=== PATIENT | female | born 1985 | race Caucasian/White ===

== ENCOUNTER 2023-11-14 19:53 | Outpatient (CLI) | payer BC ==
[~2023-11-14] VITALS: Ht 167.6 cm; Wt 105.0 kg
[~2023-11-14 19:53] MED LIST: TAMIFLU 75MG75 MG PO
[2023-11-14 20:30] VITALS: BP 156/97; PULSE 73; TEMP 97.9
[2023-11-14] MEDS ORDERED: LR 1,000 ML IV PRN (20:45)
[2023-11-14 21:00] VITALS: BP 153/85; PULSE 68
[2023-11-14 21:23] LABS: COLLECTION METHOD CLEAN CATCH
[2023-11-14 21:25] LABS: BASO % 0.4 % (0.0-2.0); EOS # 0.1 K/mm3 (0.0-0.7); EOS % 0.8 % (0.0-4.0); GRAN % 69.3 % (42.2-75.2); HEMOGLOBIN 12.1 g/dl (12.5-16.0); LYMPH % 20.1 % (20.0-51.0); MEAN CELL VOLUME 83 fl (80.0-100.0); MEAN CORPUSCULAR HEMOGLOBIN 28 pg (27-31); MEAN CORPUSCULAR HGB CONC 34 g/dl (33.0-37.0); MEAN PLATELET VOLUME 10.9 fl (7.4-10.4); MONO # 0.9 K/mm3 (0.1-0.6); MONO % 8.6 % (1.7-9.3); PLATELET COUNT 177 K/mm3 (130-400); RED BLOOD COUNT 4.27 M/mm3 (4.10-5.30); REDCELL DISTRIBUTION WIDTH-CV 12.7 % (11.5-14.5)
[2023-11-14 21:26] LABS: HEMATOCRIT 35.5 % (37.0-47.0)
[2023-11-14 21:30] VITALS: BP 122/66; PULSE 87
[2023-11-14 21:33] LABS: URINE APPEARANCE Clear (CLEAR/HAZY); URINE BLOOD Negative (NEGATIVE); URINE COLOR Yellow (YELLOW); URINE GLUCOSE Negative (NEGATIVE); URINE KETONE Negative (NEGATIVE); URINE NITRATE Negative (NEGATIVE); URINE PROTEIN(semi-quant) Negative (NEGATIVE); URINE UROBILINOGEN 0.2 E.U/dL (0.2-1.0)
[2023-11-14 21:43] LABS: ALBUMIN 2.5 g/dL (3.5-5.0); BILIRUBIN,TOTAL 0.3 mg/dL (0.2-1.2); CALCIUM 8.8 mg/dL (8.4-10.2); CREATININE, serum 0.7 mg/dL (0.57-1.11); POTASSIUM 3.8 mEq/L (3.5-4.5); TOTAL PROTEIN 6.2 g/dl (6.2-8.1)
[2023-11-14 22:00] VITALS: BP 126/74; PULSE 67
--- NOTE | 2023-11-14 22:00 | NUR ---
LOSS OF FHT DURING THIS TRACING DUE TO MOVEMENT AND MATERNAL POSITION. RN AT THE BEDSIDE ADJUSTING US AND MONITORING AND MATERNAL STATUS.
--- NOTE | 2023-11-14 22:30 | NUR ---
RN AT THE BEDSIDE DISCUSSING LAB RESULTS WITH THE PT AND DR LUO'S RECOMMENDATIONS. LOSS OF FHT DURING THIS TRACING WHILE RN IS AT THE BEDSIDE, WITH MOVEMENT AUDIBLY HEARD AND PALPATED. PT TAKEN OFF MONITORS AND INSTRUCTED TO GET DRESSED WHILE DISCHARGE INSTRUCTIONS ARE PRINTED.
[2023-11-15] MEDS ORDERED: PROCARDIA XL 3030 MG PO (00:33)
[2023-11-15] MEDS ORDERED: ZOLOFT 100MG100 MG PO (00:34)
== END 2023-11-14 22:34 | disposition home or self-care (01) ==
LOC: LDRO 19:53 → LDR 20:00 → LDRO 22:34
PROVIDERS: Obstetrics & Gynecology
DX: O26.893 Other specified pregnancy related conditions, third trimester (principal); E75.5 Other lipid storage disorders; Z3A.38 38 weeks gestation of pregnancy
CPT/HCPCS: OP

== ENCOUNTER 2023-11-18 03:13 | Inpatient (IN) | payer BC ==
[~2023-11-18] VITALS: Ht 165.1 cm; Wt 104.5 kg
[2023-11-18] VITALS (11 sets, daily range): BP systolic 121–155; BP diastolic 62–95; PULSE 54–77; TEMP 97.5–98.2
[~2023-11-18 03:13] MED LIST changes: +PROCARDIA XL 3030 MG PO; +ZOLOFT 100MG100 MG PO
--- NOTE | 2023-11-18 03:15 | NUR ---
0315- PT PRESENTS TO LDR COMPLAINING OF CONTRACTIONS. TO ROOM LR5 PER WHEELCHAIR, PT VISIBLY UNCOMFORTABLE. PT ASSISTED TO CHANGE INTO GOWN AND GET INTO BED. 0318- EFM X2 APPLIED. PT REPORTS CONTRACTIONS STARTING AROUND 0130. DENIES LEAKING AMNIOTIC FLUID. SHE DOES HAVE BLOODY SHOW VISIBLE ON BUTTOCKS PAD. SHE ALSO STATES SHE DOES FEEL BABY MOVE. PLAN OF CARE FOR LABOR CHECK DISCUSSED AND QUESTIONS ANSWERED. CONSENT FOR VAGINAL EXAM OBTAINED. 0320- SVE BY THIS NURSE /-3 WITH BULGING BAG OF MCCABE. BLOODY SHOW NOTED ON EXAM. PT IS UNCOMFORTABLE AND WOULD LIKE HER EPIDURAL. 0329- DR LUO NOTIFIED CHARTED, ORDERS RECEIVED. MITESH DONOVAN CALLED FOR EPIDURAL PLACEMENT. 0330- IV START TO LEFT WRIST CHARTED. BLOOD DRAWN FOR LABS AND LR BOLUS STARTED PRIOR TO EPIDURAL. 0337- PT ASSISTED UP TO BATHROOM, ENCOURAGED NOT TO BEAR DOWN WHILE SHE IS IN THERE. 0343- PT ASSISTED BACK TO BED. SHE STATES SHE IS FEELING PRESSURE AND WOULD LIKE HER EPIDURAL. REASSURED ANESTHESIA IS ON THE WAY. ATTEMPT TO ADJUST MONITORS. PT IS WRITHING IN BED. 0345- SROM OF LIGHT MECONIUM STAINED FLUID. PT STATES SHE HAS MORE PRESSURE. 0347- SVE BY THIS NURSE COMPLETE AND +3. PT ENCOURAGED NOT TO HOLD BREATH OR BEAR DOWN. NURSE IS DISCUSSES PT SCREAMS THE BABY IS COMING AND HEAD CAN BE SEEN ON THE PERINEUM. NURSE ATTENDED VAGINAL DELIVERY OF VIABLE FEMALE, VIGOROUS, TO MOTHER'S ABDOMEN AND CARE OF NURSERY STAFF. CHARGE NURSE AMANDA Grider RN CALLS DR LUO CHARTED. MITESH DONOVAN CALLED TO NOTIFY OF DELIVERY AND NO LONGER NEEDED. 0348- CORD CLAMPED AND CUT BY FATHER. CORD BLOOD OBTAINED. WILL WAIT FOR DR LUO FOR DELIVERY OF PLACENTA. 0401- DR LUO AT BEDSIDE FOR DELIVERY OF PLACENTA. 0404- SPONTANEOUS DELIVERY OF PLACENTA, EXAMINED BY DR LUO. PITOCIN DOSE INFUSING ORDERED. LIDOCAINE PROVIDED FOR REPAIR. 0407- REPAIR OF 2ND VAGINAL LACERATION IN PROGRESS. 0415- REPAIR COMPLETE. PT TOLERATED WELL. PERICARE PROVIDED. ICEPACK TO PERINEUM. FEET DOWN FROM FOOTPLATES AND RECOVERY STARTED.
[2023-11-18] MEDS ORDERED: LR 1,000 ML IV SCH (03:45)
[2023-11-18 03:52] LABS: BASO # 0.1 K/mm3 (0.0-0.2); BASO % 0.4 % (0.0-2.0); EOS # 0.1 K/mm3 (0.0-0.7); GRAN # 6.5 K/mm3 (1.4-6.5); GRAN % 55.3 % (42.2-75.2); HEMATOCRIT 42.7 % (37.0-47.0); LYMPH # 4.1 K/mm3 (1.2-3.4); LYMPH % 34.8 % (20.0-51.0); MEAN CELL VOLUME 87 fl (80.0-100.0); MEAN CORPUSCULAR HEMOGLOBIN 29 pg (27-31); MEAN CORPUSCULAR HGB CONC 33 g/dl (33.0-37.0); MEAN PLATELET VOLUME 11.7 fl (7.4-10.4); MONO # 0.9 K/mm3 (0.1-0.6); MONO % 7.9 % (1.7-9.3); PLATELET COUNT 209 K/mm3 (130-400); RED BLOOD COUNT 4.92 M/mm3 (4.10-5.30); REDCELL DISTRIBUTION WIDTH-CV 12.9 % (11.5-14.5)
[2023-11-18] MEDS ORDERED: LR & Oxytocin 500 ML IV SCH (04:00)
[2023-11-18 04:09] LABS: ALBUMIN 2.7 g/dL (3.5-5.0); BILIRUBIN,TOTAL 0.4 mg/dL (0.2-1.2); CALCIUM 9.7 mg/dL (8.4-10.2); POTASSIUM 4.1 mEq/L (3.5-4.5)
--- NOTE | 2023-11-18 04:45 | NUR ---
0445- CONSENTS FOR DELIVERY DISCUSSED AND SIGNED.
[2023-11-18 04:46] LABS: CREATININE, serum 0.8 mg/dL (0.57-1.11)
[2023-11-18] MEDS ORDERED: Loratadine 10 MG TAB PO PRN (05:00)
[2023-11-18] MEDS ORDERED: Magnes Hydrox (MOM) 80 MG/ML 30 ML CUP PO PRN (05:00)
[2023-11-18] MEDS ORDERED: Mag/Al Hydrox/Simeth Susp 30 ML CUP PO PRN (06:30)
[2023-11-18] MEDS ORDERED: Phenylephrine/Mineral Oil/Petrolatum 57 GM TUBE RC PRN (06:30)
[2023-11-18] MEDS ORDERED: Ibuprofen 800 MG TAB PO SCH (06:30)
[2023-11-18] MEDS ORDERED: Witch Hazel 50% Pads Bulk TUB TP PRN (06:30)
[2023-11-18] MEDS ORDERED: Naloxone 0.4 MG/ML VIAL IV PRN (06:30)
[2023-11-18] MEDS ORDERED: Measles/Mumps/Rubella Virus Vaccine Live w Diluent 0.5 ML VIAL SQ SCH (06:30)
[2023-11-18] MEDS ORDERED: oxyCODONE 5 MG TAB PO PRN (06:30)
[2023-11-18] MEDS ORDERED: Acetaminophen 500 MG TAB PO SCH (06:30)
[2023-11-18] MEDS ORDERED: Sennosides/Docusate 8.6-50 MG TAB PO SCH (08:00)
[2023-11-18] MEDS ORDERED: NIFEdipine XL 30 MG TAB PO SCH (09:00)
[2023-11-18] MEDS ORDERED: Sertraline 100 MG TAB PO SCH (09:00)
--- NOTE | 2023-11-18 19:00 | NUR ---
PT HAS NOT BEEN TAKING PAIN MED. DENIES NEED FOR MEDICATION AT THIS TIME. STATES HAS BEEN USING ICE TO PERINEUM OFF AND ON. DENIES NEED FOR TUCKS PADS OR OTHER INTERVENTION. DISCUSSED USE OF K-PAD IF NEEDED FOR CRAMPING WELL. PT WILL LET NURSE KNOW IF SHE WANTS ANYTHING FOR PAIN.
[2023-11-18] MEDS ORDERED: traZODone 50 MG TAB PO PRN (21:00)
[2023-11-19 08:00] VITALS: BP 139/76; PULSE 61; TEMP 97
--- NOTE | 2023-11-19 08:30 | NUR ---
PATIENT TAKES OWN HOME MEDICATIONS FOR PROCARDIA AND SERTRALINE.
== END 2023-11-19 12:50 | disposition home or self-care (01) | DRG 806 ==
LOC: LDRO 03:13 → LDR 03:41 → OB 05:00
PROVIDERS: Obstetrics & Gynecology; ADMIT Obstetrics & Gynecology
PROC: 10E0XZZ Delivery of Products of Conception, External Approach (ICD-10-PCS; principal; 2023-11-18)
PROC: 0KQM0ZZ Repair Perineum Muscle, Open Approach (ICD-10-PCS; 2023-11-18)
DX: O99.344 Other mental disorders complicating childbirth (principal); O10.92 Unspecified pre-existing hypertension complicating childbirth; Z37.0 Single live birth; F32.A Depression, unspecified; Z3A.39 39 weeks gestation of pregnancy; O70.1 Second degree perineal laceration during delivery; O69.2XX0 Labor and delivery complicated by other cord entanglement, with compression, not applicable or unspecified; O62.3 Precipitate labor
CPT/HCPCS: J2590; J7120